=== PATIENT | female | born 1990 ===

== ENCOUNTER 2025-01-19 13:15 | Inpatient (IN) | payer OTHER ==
[~2025-01-19] VITALS: Ht 157.5 cm; Wt 72.6 kg
[2025-02-03] VITALS (9 sets, daily range): BP systolic 103–134; BP diastolic 51–83; O2SAT 100
[2025-02-03] MEDS ORDERED: VANCOMYCIN HCL 1,000 MG VIAL ONE (06:22)
[2025-02-03] MEDS ORDERED: RINGERS SOLUTION,LACTATED 1,000 ML IV SCH (06:45)
[2025-02-03] MEDS ORDERED: VANCOMYCIN HCL 1,000 MG VIAL IV SCH (06:45)
[2025-02-03 06:59] LABS: HEMATOCRIT 36.3 % (36.0-45.00); HEMOGLOBIN 12.7 g/dL (12.0-15.00); MEAN CELL VOLUME 87.1 fL (80.00-100.00); MEAN CORPUSCULAR HEMOGLOBIN 30.4 pg (27.00-32.0); MEAN CORPUSCULAR HGB CONC 34.9 g/dl (32.0-36.0); PLATELET COUNT 279 K/uL (150-450); RED BLOOD COUNT 4.16 M/uL (4.00-6.00); RED CELL DISTRIBUTION WIDTH 13.5 % (11.5-14.5)
[2025-02-03] MEDS ORDERED: OXYTOCIN 20 UNITS/500ML RL PIGGYBAG IV ONE (07:17)
[2025-02-03 07:19] LABS: INR < 0.93; PARTIAL THROMBOPLASTIN TIME 26.9 SECONDS (22.0-34.0); PROTHROMBIN TIME 10.2 SECONDS (9.0-11.5)
[2025-02-03 07:32] LABS: ALBUMIN 2.8 gm/dL (3.4-5.0); BILIRUBIN TOTAL 0.55 mg/dL (0.3-1.2); CALCIUM 9.7 mg/dL (8.5-10.1); CREATININE SERUM 0.49 mg/dL (0.55-1.02); GFR 146.35; GLOBULINA 3.7 G/DL (2.4-3.5); POTASSIUM 3.95 mEq/L (3.5-5.1); TOTAL PROTEIN 6.5 gm/dL (6.4-8.2)
[2025-02-03] MEDS ORDERED: PRENATAL TABLE1 EAC1 PO (07:41)
[2025-02-03] MEDS ORDERED: OXYTOCIN 500 ML IV ONE (08:45)
[2025-02-03] MEDS ORDERED: MORPHINE SULFATE 4 MG/ML CARTRIDGE IV PRN (08:45)
[2025-02-03] MEDS ORDERED: ERYTHROMYCIN BASE OPHT 1GM EACH TUBE OP ONE (15:02)
[2025-02-03] MEDS ORDERED: LIDOCAINE HCL 1% 10ML VIAL ONE (15:03)
[2025-02-03] MEDS ORDERED: OXYTOCIN 20 UNITS/1000ML RL PIGGYBAG IV ONE (15:03)
[2025-02-03] MEDS ORDERED: CHLORHEXIDINE GLUCONATE 120 ML BOTTLE TOP ONE (15:03)
[2025-02-03] MEDS ORDERED: CHLORHEXIDINE GLUCONATE 120 ML BOTTLE TP SCH (21:15)
[2025-02-03] MEDS ORDERED: IBUprofen 400 MG TABLET PO PRN (21:15)
[2025-02-03] MEDS ORDERED: OXYTOCIN 1,000 ML IV SCH (21:15)
[2025-02-03] MEDS ORDERED: CLINDAMYCIN HCL 300 MG CAPSULE PO SCH (21:20)
[2025-02-04 00:37] VITALS: BP 116/74
[2025-02-04 07:38] LABS: MEAN CELL VOLUME 87.7 fL (80.00-100.00); MEAN CORPUSCULAR HGB CONC 33.9 g/dl (32.0-36.0); PLATELET COUNT 271 K/uL (150-450); RED CELL DISTRIBUTION WIDTH 13.2 % (11.5-14.5)
[2025-02-04 07:52] LABS: HEMOGLOBIN 9.5 g/dL (12.0-15.00); MEAN CORPUSCULAR HEMOGLOBIN 29.6 pg (27.00-32.0)
[2025-02-04 08:00] VITALS: BP 105/65
[2025-02-04] MEDS ORDERED: OxyCODONE HCL 5 MG TABLET (ROXICODONE) PO SCH (08:00)
[2025-02-04] MEDS ORDERED: DOCUSATE SODIUM 100MG CAP PO SCH (09:00)
[2025-02-04] MEDS ORDERED: KETOROLAC TROMETHAMINE 10 MG TABLET PO SCH (12:00)
[2025-02-04 15:00] VITALS: BP 92/59
[2025-02-04] MEDS ORDERED: CLINDAMYCIN HCL 300 MG CAPSULE PO SCH (17:00)
[2025-02-05 01:44] VITALS: BP 100/62
[2025-02-05 08:00] VITALS: BP 100/66
== END 2025-02-05 16:16 | disposition home or self-care (01) | DRG 807 ==
LOC: OB/GYN 02-02 13:15 → LDR 02-03 05:39 → OB/GYN 02-03 19:14
PROVIDERS: Obstetrics & Gynecology; Obstetrics & Gynecology Maternal & Fetal Medicine; ADMIT Obstetrics & Gynecology; ATTEND Obstetrics & Gynecology
PROC: 10E0XZZ Delivery of Products of Conception, External Approach (ICD-10-PCS; principal; 2025-02-03)
PROC: 0W8NXZZ Division of Female Perineum, External Approach (ICD-10-PCS; 2025-02-03)
PROC: 4A1HXCZ Monitoring of Products of Conception, Cardiac Rate, External Approach (ICD-10-PCS; 2025-02-03)
DX: O99.824 Streptococcus B carrier state complicating childbirth (principal); Z37.0 Single live birth; Z3A.40 40 weeks gestation of pregnancy

== ENCOUNTER 2025-02-01 13:33 | Outpatient (CLI) | payer OTHER | END 2025-02-01 13:53 | disposition home or self-care (01) | LOC: NST 13:33 | PROVIDERS: ATTEND Obstetrics & Gynecology Maternal & Fetal Medicine | DX: Z34.83 Encounter for supervision of other normal pregnancy, third trimester (principal) ==